=== PATIENT | male | born 1995 | race Caucasian/White ===

== ENCOUNTER 2021-08-10 20:32 | Emergency (ER) | payer SELFPAY ==
[~2021-08-10] VITALS: Ht 170.2 cm; Wt 66.0 kg
[2021-08-10] MEDS ORDERED: TETANUS, DIPHTHERIA, PERTUSSIS VAC/PF 0.5ML (>10YR OLD) IM ONE (22:00)
[2021-08-11 00:12] VITALS: BP 135/83
== END 2021-08-11 00:30 | disposition home or self-care (01) ==
LOC: ER 20:32
DX: S02.2XXA Fracture of nasal bones, initial encounter for closed fracture (principal); S01.21XA Laceration without foreign body of nose, initial encounter; Y04.0XXA Assault by unarmed brawl or fight, initial encounter; Y93.89 Activity, other specified; Y92.512 Supermarket, store or market as the place of occurrence of the external cause; Y99.8 Other external cause status
CPT/HCPCS: 12011; 70450; 70486; 90471; 90715; 99284; Z7610